=== PATIENT | male | born 1975 | race African-American/Black ===

== ENCOUNTER 2019-08-08 10:55 | Emergency (ER) | payer SELFPAY ==
[2019-08-08 11:04] LABS: Glucose Point of Care > 500 (65-105)
[2019-08-08 11:09] VITALS: BP 211/150; PULSE 120; RESP 16; TEMP 36.6; O2SAT 99
--- NOTE | 2019-08-08 11:15 | ED.GENADULT ---
HPI - General Adult General Chief complaint: Recheck/Abnormal Lab/Rx Stated complaint: high blood glucose Time Seen by Provider: 08/08/19 10:56 Source: patient Mode of arrival: ambulatory Limitations: no limitations History of Present Illness HPI narrative: Patient is a 43-year-old male who presents to emergency department for evaluation of not feeling well for the last 2 days with concern that his glucose may be elevated patient notes that he has been feeling fatigued with spots in his vision consistent with prior exacerbations notes that he has been out of his medicine for weeks patient denies any recent illness fever chills nausea vomiting diarrhea presents in no distress denying any pain Related Data Allergies Allergy/AdvReac Type Severity Reaction Status Date / Time No Known Allergies Allergy Unverified 02/21/18 13:34 Review of Systems Review of Systems: All systems reviewed & are unremarkable except as noted in HPI and below PMFSH Past Medical History Medical History (Updated 08/08/19 @ 14:10 by Freddie Peters PA-C) Diabetes mellitus Hypertension Obesity Social History Social History Gender identity (if verbalized by the patient): Male Exam Narrative: Exam Narrative: GENERAL: Well-appearing, morbid obesity, and in no acute distress. HEAD: Normocephalic, atraumatic. EYES: PERRLA and EOMI. ENT: Nares clear, no rhinorrhea or epistaxis. Mucous membranes moist. Oropharynx without tonsillar hypertrophy exudate or other lesions. NECK: Supple. No adenopathy or masses. CHEST: Clear to auscultation. No respiratory distress. No wheezes rales or rhonchi HEART: Regular rate and rhythm. No murmur heard. Normal peripheral pulses. ABDOMEN: Soft, nontender, nondistended EXTREMITIES: Normal range of motion. No edema. SKIN: Warm, dry, no rash. NEURO: No focal deficits. Alert and oriented x3. Cranial nerves II through XII grossly intact PSYCH: Normal mood and affect. Course Course Emergency Course: Patient in the room aware of case findings treatment plan and diagnosis Vital Signs Vital signs: Vital Signs Temperature 98 F 08/08/19 11:09 Pulse Rate 120 H 08/08/19 11:09 Respiratory Rate 16 08/08/19 11:09 Blood Pressure 211/150 H 08/08/19 11:09 Pulse Oximetry 99 08/08/19 11:09 Temperature 98 F 08/08/19 11:09 Pulse Rate 104 H 08/08/19 12:37 Respiratory Rate 18 08/08/19 12:37 Blood Pressure 157/99 H 08/08/19 12:37 Pulse Oximetry 98 08/08/19 12:37 Medical Decision Making MDM Narrative Medical decision making narrative: Patient in the room asymptomatic no distress was hydrated has an anion gap of 12 was given 2 L and insulin in the emergency department patient felt appropriate for outpatient reevaluation has medications filled and is agreeing to do so also provided with reasons to return Vital Signs Vital Signs: Vital Signs Temperature 98 F 08/08/19 11:09 Pulse Rate 120 H 08/08/19 11:09 Respiratory Rate 16 08/08/19 11:09 Blood Pressure 211/150 H 08/08/19 11:09 Pulse Oximetry 99 08/08/19 11:09 Temperature 98 F 08/08/19 11:09 Pulse Rate 104 H 08/08/19 12:37 Respiratory Rate 18 08/08/19 12:37 Blood Pressure 157/99 H 08/08/19 12:37 Pulse Oximetry 98 08/08/19 12:37 Lab Data Result diagrams: 08/08/19 11:41 08/08/19 11:41 Labs: Lab Results 08/08/19 08/08/19 08/08/19 Range/Units 11:01 11:40 11:41 WBC 8.2 (4.5-10.0) K/mm3 RBC 5.44 (4.6-6.20) M/mm3 Hgb 14.8 (14.0-18.0) g/dL Hct 44.8 (42.0-52.0) % MCV 82.4 (80-100) fl MCH 27.2 (26-34) pg MCHC 33.0 (32-36) g/dl RDW 13.2 (11.5-14.5) % Plt Count 204 (150-375) k/mm3 MPV 11.0 H (7.4-10.4) fl Immature Gran % (Auto) 0.2 (0-0.5) % Neut % (Auto) 56.9 (45.5-73.1) % Lymph % (Auto) 31.8 (18.3-44.2) % Harris % (Auto) 9.7 H (2.6-8.5) % Eos % (Auto)
[2019-08-08] MEDS: SODIUM CHLORIDE 0.9% IV 1,000 ML 999 ML IV CONT ×2 (11:20→12:54)
[2019-08-08] MEDS: INSULIN HUMAN REGULAR (*BKC) 100 UNITS/ML 10 UNITS IV PUSH (11:21)
[2019-08-08 11:47] LABS: Basophils Percent Auto 0.4 % (0.2-1.2); Eosinophils Absolute Auto 0.1 K/mm3 (0-0.3); Hematocrit 44.8 % (42.0-52.0); Hemoglobin 14.8 g/dL (14.0-18.0); Immature Granulocyte Absolute 0.02 K/mm3 (0.00-0.031); Immature Granulocyte Percent A 0.2 % (0-0.5); Lymphocytes Percent Auto 31.8 % (18.3-44.2); Mean Corpuscular Hemoglobin 27.2 pg (26-34); Mean Corpuscular Volume 82.4 fl (80-100); Monocytes Absolute Auto 0.8 K/mm3 (0.1-0.6); Monocytes Percent Auto 9.7 % (2.6-8.5); Neutrophils Absolute Auto 4.7 K/mm3 (1.3-6.7); Neutrophils Percent Auto 56.9 % (45.5-73.1); Platelet Count Result 204 k/mm3 (150-375); Red Blood Count 5.44 M/mm3 (4.6-6.20); Red Cell Distribution Width 13.2 % (11.5-14.5); White Blood Count 8.2 K/mm3 (4.5-10.0)
[2019-08-08 11:53] LABS: Add Urine Microscopic? YES; Appearance Urine Clear (Clear); Bilirubin Urine Negative (Negative); Blood Urine Negative (Negative); Color Urine Colorless (Yellow); Glucose Urine UA 3+ mg/dL (Negative); Ketones Urine Negative (Negative); Leukocyte Esterase Ur Negative LEU/UL (Negative); Mucus Urine Rare /lpf; Nitrate Urine Negative (Negative); Protein Urine Negative (Negative); RBC Urine 0-2 /hpf (0-2); Specific Grav Ur 1.024 (1.001-1.035); Urobilinogen Urine Negative mg/dL (<2.0)
[2019-08-08 12:06] LABS: Beta-Hydroxybutyrate/Acetoacetate 0.14 mmol/L (0.02-0.27)
[2019-08-08 12:08] LABS: Alanine Aminotransferase 22 U/L (4-50); Albumin Level 4.5 g/dL (3.5-5.1); Alkaline Phosphatase 118 U/L (38-126); Aspartate Amino Transferase 25 U/L (17-59); Bilirubin,Total 0.6 mg/dL (0.2-1.3); Blood Urea Nitrogen 15 mg/dL (9-20); Calcium 9.4 mg/dL (8.4-10.2); Carbon Dioxide 26 mmol/L (22-30); Chloride 96 mmol/L (98-107); Estimated CRCL calculation 137 ml/min; Estimated Glomerular Filt Rate > 60; Glucose 623 mg/dL (75-110); Magnesium 1.9 mg/dL (1.6-2.3); Phosphorus 4.3 mg/dL (2.5-4.5); Potassium 4.5 mmol/L (3.4-5.0); Sodium 134 mmol/L (137-145)
[2019-08-08 12:37] VITALS: BP 157/99; PULSE 104; RESP 18; O2SAT 98
[2019-08-08 12:50] LABS: Glucose Point of Care 430 (65-105)
[2019-08-08] MEDS: LOSARTAN POTASSIUM 100 MG TABLET PO (14:33)
[2019-08-08 15:17] VITALS: BP 149/109; PULSE 92; RESP 14; O2SAT 98
== END 2019-08-08 15:19 | disposition home or self-care (01) ==
PROVIDERS: Emergency Medicine Emergency Medical Services; Emergency Provider Emergency Medicine
DX: E11.65 Type 2 diabetes mellitus with hyperglycemia (principal); I10 Essential (primary) hypertension; E66.9 Obesity, unspecified; Z68.43 Body mass index [BMI] 50.0-59.9, adult; Z79.4 Long term (current) use of insulin; Z79.84 Long term (current) use of oral hypoglycemic drugs
CPT/HCPCS: 36415; 80053; 81001; 82010; 82948; 83735; 84100; 85025; 96361; 96374; 99284; A9270; J1815; J7030